=== PATIENT | male | born 1980 | race Caucasian/White ===

== ENCOUNTER 2021-03-01 08:00 | Emergency (ER) | payer BC ==
--- NOTE | 2021-03-01 08:50 | EDM.PDOC ---
ED HPI GENERAL MEDICAL PROBLEM - General Chief Complaint: General Stated Complaint: COVID SYMPTOMS/COUGH/SOB/FATIGUE/SORE THROAT Time Seen by Provider: 03/01/21 08:20 Source of Information: Reports: Patient History Limitations: Reports: No Limitations - History of Present Illness INITIAL COMMENTS - FREE TEXT/NARRATIVE: Sam is a 41-year-old male patient presents to the emergency department with onset of flulike symptoms. Patient began to have a sore throat February 24. He states he developed lower back pain, fever, chills, cough, and fatigue more so on Saturday, February 26. Patient states he came to the ER today because of his lower back pain. He states that he did move snow on Saturday but states he did not have any injury. Patient has been coughing persistently. He denies abdominal complaints including diarrhea, nausea, vomiting, or constipation. He states that he has been using Tylenol and ibuprofen for his fever. States that his appetite has been decreased over the past several days. Denies losing his sense of taste or smell. 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, NSAIDS Lower Back Pain Score (Numeric/FACES): 5 - Related Data Allergies Allergy/AdvReac Type Severity Reaction Status Date / Time cephalexin [From Keflex] Allergy Rash Verified 03/01/21 08:19 Home Meds: Home Meds Insulin Aspart [NovoLOG] See Protocol SUBCUT TIDMEALS 03/01/21 [History] Insulin Glarg,Human.Rec.Analog [Lantus Solostar] 80 units SUBCUT DAILY 03/01/21 [History] Past Medical History Endocrine/Metabolic History: Reports: Diabetes, Type I Social & Family History - Tobacco Use Tobacco Use Status *Q: Never Tobacco User - Caffeine Use Caffeine Use: Reports: Coffee, Soda - Recreational Drug Use Recreational Drug Use: No ED ROS GENERAL - Review of Systems Review Of Systems: See Below Constitutional: Reports: Fever, Chills, Weakness, Fatigue, Decreased Appetite HEENT: Reports: Throat Pain Respiratory: Reports: Cough. Denies: Shortness of Breath Cardiovascular: Denies: Chest Pain Endocrine: Reports: Fatigue GI/Abdominal: Reports: Decreased Appetite. Denies: Abdominal Pain, Black Stool, Bloody Stool, Constipation, Diarrhea, Nausea : Denies: Discharge, Dysuria, Flank Pain, Hematuria Musculoskeletal: Reports: Back Pain, Muscle Stiffness, Other (generalized body aches) Skin: Reports: No Symptoms Neurological: Denies: Confusion, Dizziness, Headache Psychiatric: Reports: No Symptoms Hematologic/Lymphatic: Reports: No Symptoms Immunologic: Reports: No Symptoms ED EXAM, GENERAL - Physical Exam Exam: See Below Exam Limited By: No Limitations General Appearance: Alert, WD/WN, Mild Distress Nose: No Blood Throat/Mouth: Normal Inspection, Normal Lips, No Airway Compromise Head: Atraumatic, Normocephalic Neck: Normal Inspection, Non-Tender, Full Range of Motion Respiratory/Chest: No Respiratory Distress, Lungs Clear, Normal Breath Sounds Cardiovascular: Normal Peripheral Pulses, Regular Rate, Rhythm, No Edema, No Gallop, No JVD, No Murmur, No Rub GI/Abdominal: Normal Bowel Sounds, Soft, Non-Tender, No Organomegaly, No Distention, No Abnormal Bruit (Male) Exam: Deferred Rectal (Males) Exam: Deferred Back Exam: Normal Inspection, Full Range of Motion, Other (tenderness to bilateral lower back) Extremities: Normal Range of Motion, No Pedal Edema Neurological: Alert, Oriented, CN II-XII Intact, Normal Cognition, Normal Gait Psychiatric: Normal Affect, Normal Mood Skin Exam: Dry, Intact, Increased Warmth Lymphatic: No Adenopathy Course - Vital Signs Last Recorded V/S: Last Vital Signs Temp 99.2 F 03/01/21 08:13 Pulse 96 03/01/21 08:13 Resp 20 03/01/21 08:13 BP 166/97 H 03/01/21 08:13 Pulse Ox 95 03/01/21 08:13 - Orders/Labs/Meds Orders: Active Orders 24 hr Category Date Time Status Vital Signs [RC] Q15M Care 03/01/21 09:03 Active Casirivimab/Imdevimab [Regen-Cov 600-600 mg/10Ml (Eua)] Med 03/01/21 09:45 Active 10 ml Sodium Chloride 0.9% [Normal Saline AdvBag] 100 ml IV ONETIME EPINEPHrine [Adrenalin] Med 03/01/21 09:02 Active 0.3 mg IM ASDIRECTED PRN Famotidine [Pepcid] Med 03/01/21 09:02 Active 20 mg IVPUSH ASDIRECTED PRN Sodium Chloride 0.9% [Saline Flush] Med 03/01/21 10:15 Active 30 ml FLUSH ASDIRECTED diphenhydrAMINE [Benadryl] Med 03/01/21 09:02 Active 50 mg IVPUSH ASDIRECTED PRN methylPREDNISolone Sod Succ [Solu-MEDROL] Med 03/01/21 09:02 Active 125 mg IVPUSH ASDIRECTED PRN Medication Orders Diphenhydramine HCl (Diphenhydramine 50 Mg/Ml Sdv) 50 mg IVPUSH ASDIRECTED PRN PRN Reason: hypersensitivity reaction Epinephrine HCl (Epinephrine 1 Mg/Ml Sdv) 0.3 mg IM ASDIRECTED PRN PRN Reason: hypersensitivity reaction Famotidine (Famotidine 20 Mg/2 Ml Sdv) 20 mg IVPUSH ASDIRECTED PRN PRN Reason: hypersensitivity reaction CASIRIVIMAB/IMDEVIMAB 10 ml/ (Sodium Chloride) 110 mls @ 220 mls/hr IV ONETIME ONE Stop: 03/01/21 10:14 Methylprednisolone Sodium Succinate (Methylprednisolone Sodium Succinate 125 Mg/2 Ml Sdv) 125 mg IVPUSH ASDIRECTED PRN PRN Reason: hypersensitivity reaction Sodium Chloride (Sodium Chloride 0.9% 10 Ml Syringe) 30 ml FLUSH ASDIRECTED ELLA Labs: Laboratory Tests 03/01/21 Range/Units 08:23 SARS CoV-2 RNA Rapid KARMEN Positive H (NEGATIVE) Meds: Medications Generic Name Dose Route Start Last Admin Trade Name Freq PRN Reason Stop Dose Admin Diphenhydramine HCl 50 mg 03/01/21 09:02 Diphenhydramine 50 Mg/Ml Sdv IVPUSH ASDIRECTED PRN hypersensitivity reaction Epinephrine HCl 0.3 mg 03/01/21 09:02 Epinephrine 1 Mg/Ml Sdv IM ASDIRECTED PRN hypersensitivity reaction Famotidine 20 mg 03/01/21 09:02 Famotidine 20 Mg/2 Ml Sdv IVPUSH ASDIRECTED PRN hypersensitivity reaction CASIRIVIMAB/IMDEVIMAB 10 ml/ 110 mls @ 220 mls/hr 03/01/21 09:45 Sodium Chloride IV 03/01/21 10:14 ONETIME ONE Methylprednisolone Sodium Succinate 125 mg 03/01/21 09:02 Methylprednisolone Sodium Succinate 125 Mg/2 Ml Sdv IVPUSH ASDIRECTED PRN hypersensitivity reaction Sodium Chloride 30 ml 03/01/21 10:15 Sodium Chloride 0.9% 10 Ml Syringe FLUSH ASDIRECTED ELLA Discontinued Medications Generic Name Dose Route Start Last Admin Trade Name Darrylq PRN Reason Stop Dose Admin Ketorolac Tromethamine 30 mg 03/01/21 08:42 03/01/21 09:06 Ketorolac 30 Mg/Ml Sdv IM 03/01/21 08:43 30 mg ONETIME ONE Administration - Re-Assessments/Exams Free Text/Narrative Re-Assessment/Exam: Sam is a 41-year-old male that presented to the ER with lower back pain and flulike symptoms. A Covid test was collected and confirmed positive. 30 mg of Toradol was ordered to assist with pain control in his lower back. Discussed the risk and benefits of antimonoclonal antibody therapy for COVID-19. Patient was given the information sheet and discussed this treatment option with his . Patient has elected to proceed with the antimonoclonal antibody therapy. He does meet criteria based on his BMI and history of type 1 diabetes. The patient will will receive the antimonoclonal antibodies today. Plan will be to discharge patient home following his antimonoclonal antibodies. Discussed the importance of oral hydration when at home and to push fluids. 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 If he feels that his symptoms are worsening he may return to the emergency department. He can certainly call or follow-up with any questions or concerns. Also discussed that he should quarantine at home as well as his family members to avoid spread. Departure - Departure Time of Disposition: 09:20 Disposition: Home, Self-Care 01 Condition: Fair Clinical Impression: COVID-19 Back pain Qualifiers: Back pain location: low back pain Chronicity: unspecified Back pain laterality: bilateral Sciatica presence: without sciatica Qualified Code(s): M54.50 - Low back pain, unspecified - Discharge Information *PRESCRIPTION DRUG MONITORING PROGRAM REVIEWED*: Not Applicable *COPY OF PRESCRIPTION DRUG MONITORING REPORT IN PATIENT GAURAV: Not Applicable Instructions: Symptoms of COVID-19 - CDC (05/16/2020), COVID-19 Frequently Asked Questions Forms: ED Department Discharge Additional Instructions: 1. You and your family should quarantine at home following state and local guidelines. 2. You received Toradol today for your back pain and monoclonal antibodies as a therapeutic for COVID-19. 3. Encourage adequate fluid intake for hydration. 4. May take Tylenol and ibuprofen as directed on the bottle for fever or pain. 5. Consider picking up an oxygen saturation monitor and assess your oxygen. If your oxygen saturations are consistently below 90% you should be reevaluated in the emergency department. 6. Monitor your blood sugar levels closely as with any illness your blood sugars may increase. 7. Call or return if you have questions or your symptoms are worsening. Sepsis Event Note (ED) - Evaluation Sepsis Screening Result: No Definite Risk - Focused Exam Vital Signs: Vital Signs Temp Pulse Resp BP Pulse Ox 03/01/21 08:13 99.2 F 96 20 166/97 H 95 - My Orders Last 24 Hours: My Active Orders 03/01/21 09:02 EPINEPHrine [Adrenalin] 0.3 mg IM ASDIRECTED PRN Famotidine [Pepcid] 20 mg IVPUSH ASDIRECTED PRN diphenhydrAMINE [Benadryl] 50 mg IVPUSH ASDIRECTED PRN methylPREDNISolone Sod Succ [Solu-MEDROL] 125 mg IVPUSH ASDIRECTED PRN 03/01/21 09:03 Vital Signs [RC] Q15M 03/01/21 09:45 Casirivimab/Imdevimab [Regen-Cov 600-600 mg/10Ml (Eua)] 10 ml Sodium Chloride 0.9% [Normal Saline AdvBag] 100 ml IV ONETIME 03/01/21 10:15 Sodium Chloride 0.9% [Saline Flush] 30 ml FLUSH ASDIRECTED - Assessment/Plan Last 24 Hours: My Active Orders 03/01/21 09:02 EPINEPHrine [Adrenalin] 0.3 mg IM ASDIRECTED PRN Famotidine [Pepcid] 20 mg IVPUSH ASDIRECTED PRN diphenhydrAMINE [Benadryl] 50 mg IVPUSH ASDIRECTED PRN methylPREDNISolone Sod Succ [Solu-MEDROL] 125 mg IVPUSH ASDIRECTED PRN 03/01/21 09:03 Vital Signs [RC] Q15M 03/01/21 09:45 Casirivimab/Imdevimab [Regen-Cov 600-600 mg/10Ml (Eua)] 10 ml Sodium Chloride 0.9% [Normal Saline AdvBag] 100 ml IV ONETIME 03/01/21 10:15 Sodium Chloride 0.9% [Saline Flush] 30 ml FLUSH ASDIRECTED
[2021-03-01] MEDS ORDERED: methylPREDNISolone Sodium Succinate 125 MG/2 ML SDV IVPUSH PRN (09:02)
[2021-03-01] MEDS ORDERED: diphenhydrAMINE 50 MG/ML SDV IVPUSH PRN (09:02)
[2021-03-01] MEDS ORDERED: Famotidine 20 MG/2 ML SDV IVPUSH PRN (09:02)
[2021-03-01] MEDS ORDERED: EPINEPHrine 1 MG/ML SDV IM PRN (09:02)
[2021-03-01] MEDS: Ketorolac 30 MG/ML SDV IM ONE (09:06)
[2021-03-01] MEDS ORDERED: Sodium Chloride 0.9% 10 ML Syringe FLUSH SCH (10:15)
== END 2021-03-01 11:20 | disposition home or self-care (01) ==
LOC: CC.ED 08:00
DX: U07.1 COVID-19 (principal); M54.50 Low back pain, unspecified; E10.9 Type 1 diabetes mellitus without complications; Z88.1 Allergy status to other antibiotic agents
CPT/HCPCS: 96372; 99283-25; J1885; M0243; Q0243; U0002

== ENCOUNTER 2024-06-22 08:40 | Emergency (ER) | payer BC ==
[2024-06-22] MEDS: Ketorolac 30 MG/ML SDV IM ONE (09:16)
[2024-06-22] MEDS: Orphenadrine 60 MG/2 ML Inj IM ONE (09:17)
== END 2024-06-22 09:40 | disposition home or self-care (01) ==
LOC: SUPCPDRO 08:40 → CC.ED 08:40
DX: M54.10 Radiculopathy, site unspecified (principal); M62.838 Other muscle spasm; E10.9 Type 1 diabetes mellitus without complications; Z88.1 Allergy status to other antibiotic agents; Z79.899 Other long term (current) drug therapy; Z79.4 Long term (current) use of insulin
CPT/HCPCS: 96372; 99283; J1885; J2360